=== PATIENT | male | born 1950 | race Caucasian/White ===

== ENCOUNTER 2024-12-20 05:10 | Emergency (ER) | payer MEDICARE, SELFPAY ==
[2024-12-20] VITALS (10 sets, daily range): BP systolic 100–123; BP diastolic 78–88; PULSE 85–96; RESP 14–22; TEMP 36.6; O2SAT 96–100
--- NOTE | ~2024-12-20 | CT_ITS ---
CT of the Abdomen and Pelvis: Indication: Abdominal pain Technique: 2.5 mm axial scans were obtained through the abdomen and pelvis following intravenous adm inistration of 100 cc of Omnipaque 350. Dose reduction technique was used on this scan by utilizing a utomated exposure control and iterative reconstruction technique. The dose-length product (DLP) was 7 07.40 mGy-cm. Findings: Scans through the lung bases are unremarkable. There is diffuse hepatic steatosis. The spleen, pancreas, gallbladder, adrenals and kidneys are withi n normal limits. No evidence of aortic aneurysm. No lymphadenopathy. No bowel obstruction or bowel wall thickening. There is no evidence to suggest acute appendicitis. Images through the pelvis were performed. Urinary bladder unremarkable. No pelvic mass seen. No ascit es. Bilateral L5 pars interarticularis defects are present. Impression: No acute abnormalities seen. Diffuse hepatic steatosis. Reviewed, dictated and finalized at [facility]. Impression: No acute abnormalities seen. Diffuse hepatic steatosis.
--- OUTSIDE RECORDS SUMMARY | 2024-12-20 05:12 | XMS_ITS | Clinical Summary ---
Author Organization [facility] Address [address] [place] [address] Care Team Providers Care Photographic Intelligence Officer Name Role Phone Unavailable Primary Care Provider Unavailabl e Source Comments [facility],non-owned Affiliates and Associated Physician Practices is amultiple site organization consisting of ambulatory clinics and hospital sitesin [place], [place], [place] and [place]. This disclosure is being madepursuant to the Care Everywhere program and may not contain all information available regarding this patient. Last updated 18.[facility] Immunizations Immunization Administration Dates Next Due HEP A VACCINE, ADULT 05/15/2018 HEP B VACCINE, ADULT 3 DOSE 05/15/2018 TD (ADULT), 5 LF TETANUS TOXOID, ADSORBED, PF Social History Tobacco Use Types Packs/Day Years Used Date Smoking Tobacco: Never Assessed Sex and Gender Information Value Date Recorded Sex Assigned at Not on file Legal Sex Male 3:55 PM CDT Gender Identity Not on file Sexual Orientation Not on file Plan of Treatment Health Maintenance Due Date Last Done Comments COLOGUARD (AGES 45-75) - COL ON CA SCREENING 1950 COLON MONITORING 1950 COLONOSCOPY - COLON CA SCREENING 1950 CT COLONOGRAPHY - COLON CA SCREENING 1950 Colorectal Cancer Screening 1950 FIT - COLON CA SCREENING 1950 FLEX SIG - COLON CA SCREENING 1950 LIPID TESTING 1950 HEPATITIS C SCREENING 02/28/1970 PNEUMOCOCCAL VACCINE 50+ (1 of 1 - PCV) 2002 ZOSTER VACCINE (1 of 2) 2002 HEPATITIS B VACCINE (2 of 3 - Risk 3-dose series) 06/12/2018 05/15/2018 HEPATITIS A VACCINE (2 of 2 - Risk 2-dose series) 11/13/2018 05/15/2018 COVID-19 VACCINE (1 - 2023-2 5 season) 2024 DEPRESSION SCREENING 08/14/2024 INFLUENZA VACCINE (Season Ended) 2025 Respiratory Syncytial Virus (RSV) Vaccine Pt: or over 60 yrs (1 - 1-dose 75+ series) 2027 DTAP/TDAP/TD VACCINES (2 - T d or Tdap) 05/15/2028 05/15/2018 HIB VACCINE Aged Out No longer eligi ble based on patient's age to complete this topic HPV VACCINE Aged Out No longer eligi ble based on patient's age to complete this topic MENINGOCOCCAL (Group B) VACC INE SHARED DECISION-MAKING Aged Out No longer eligibl e based on patient's age to complete this topic MENINGOCOCCAL GROUPS A/C/Y/W VACCINE Aged Out No longer eligible b ased on patient's age to complete this topic Insurance MEDICARE [employer] MEDICARE
--- OUTSIDE RECORDS SUMMARY | 2024-12-20 05:12 | XMS_ITS | Clinical Summary ---
Author Organization [facility] Address [address] [place] [id number] Care Team Providers Care Cra Name Role Phone Ho Peña MD Primary Care Provider [phone] Enio Parish MD Unavailable [phone] Allergies No known active allergies Medications lisinopril (PRINIVIL,ZESTR IL) 10 mg tablet TK 1 T PO QD 10 05/01/2018 Active aspirin 81 mg tablet Take 1 tablet (81 mg total) by mouth daily Active multivitamin capsule Take 1 capsule by mouth daily Active metFORMIN (GLUCOPHAGE) 500 mg tablet 850 mg 09/29/2020 Activ e rosuvastatin (CRESTOR) 10 mg tablet Take 1 tablet (10 mg total) by mouth daily Active Rybelsus 3 mg tablet 09/01/2022 Active Rybelsus 7 mg tablet Take 1 tablet (7 mg total) by mouth Every other day 11/14/2022 Active polyethylene glycol (GoLYTELY) 236-22.74-6.74 -5.86 gram solution Drink first half of prep at 6:00pm the night before procedure. Drink second half of prep 4 hours prior to leaving home for procedure. 4000 mL 11/01/2023 Active sodium, potassium & mag sulfates (SUPREP BOWEL KIT) 17.5-3.13-1.6 gram recon solnIndications :Bowel Evacuation Drink first half of prep at 6:00pm the night before procedure. Drink second half of prep 4 hours prior to leaving home for procedure. 354 mL 01/01/2024 Active Active Problems Problem Noted Date Diagnosed Date History of rectal cancer 11/29/2018 Malignant neoplasm screen 06/26/2018 Overview (07/24/2018): Added automatically from request for surgery [id number] Recent weight loss 05/10/2018 Muscle cramps 05/10/2018 Resolved Problems Problem Noted Date Diagnosed Date Resolved Date Rectal cancer (CMS/HCC) 05/10/2018 04/0 01/2023 Surgical History Surgery Date Site/Laterality Comments COLONOSCOPY 03/14/2018 REPLACEMENT UNICONDYLAR JOINT KNEE 08/14/2008 - 08/13/20 09 UPPER GASTROINTESTINAL ENDOSCOPY Medical History Medical History Date Comments Hypertension Diabetes mellitus (HCC) Family History Medical History Relation Name Comments Hypertension Father Hypertension Mother Colon cancer Neg Hx Relation Name Status Comments Father Mother Social History Tobacco Use Types Packs/Day Years Used Date Smoking Tobacco: Never Smokeless Tobacco: Never Tobacco Cessation:Counseling Given: Not Answered Alcohol Use Standard Drinks/Week Comments No 0 (1 standard drink = 0.6 oz pur e alcohol) AUDIT-C Answer Date Recorded Q1: How often do you have a drink containing alc ohol? Never 05/30/2024 Average Number of Drinks Not on file 024 Frequency of Binge Drinking Not on file 05/14 Personal Safety Answer Date Recorded Have you ever been in or are you currently in a harmful physical or emotional relationship or is someone making you feel afraid or unsafe? Denies 05/30/2024 Sex and Gender Information Value Date Recorded Sex Assigned at Not on file Legal Sex Male 11:28 AM CDT Gender Identity Not on file Sexual Orientation Not on file Obstetrics History Last Filed Vital Signs Vital Sign Reading Time Taken Comments Blood Pressure 113/84 05/30/2024 10:50 AM CDT Pulse 69 05/30/2024 10:50 AM CDT Temperature 36.2 C (97.2 F) 05/30/2024 10:27 AM CDT Respiratory Rate 17 05/30/2024 10:50 AM CDT Oxygen Saturation 99% 05/30/2024 10:50 AM CDT Inhaled Oxygen Concentration - - Weight 90.3 kg (199 lb) 11/01/2023 1:12 PM CDT Height 172.7 cm (5' 8 ) 11/01/2023 1:12 PM CDT Body Mass Index 30.26 11/01/2023 1:12 PM CDT Plan of Treatment Health Maintenance Due Date Last Done Comments Depression Screening 1950 Hepatitis C Screening 1950 Pneumococcal vaccine 65+ (1 of 1 - PCV) 2002 Zoster Vaccine (1 of 2) 2002 Well Visit 65+ 2017 DTaP/Tdap/Td Vaccine (1 - Tdap) 05/16/2018 8 Influenza Vaccine (#1) 2024 05/20/2018 Fall Risk Assessment 05/30/2025 05/30/2024 Colon Cancer Screening-Colonoscopy 05/30/2034 05/30/2024, 12/18/2020, 06/06/2019 Hepatitis B Screening Completed 05/15/2018 Colon Cancer Screening-CT Colonography Discontinued 05/30/2024, 12/18/2020, 06/06/2019, Additional history exists Colon Cancer Screening-DNA Stool Discontinued 05/30/2024, 12/18/2020, 06/06/2019, Additional history exists Colon Cancer Screening-FIT Discontinued 05/30, 12/18/2020, 06/06/2019, Additional history exists Colon Cancer Screening-Sigmoidoscopy Discontinued 05/30/2024, 12/18/2020, 06/06/2019, Additional history exists Procedures Procedure Name Priority Date/Time Associated Diagnosis Comments COLONOSCOPY 05/30/2024 10:01 AM CDT from Last 3 Months or Most Recently Relevant to Health Maintenance Results * Colonoscopy (05/30/2024 10:01 AM CDT) Anatomical Region Laterality Modality Other Narrative Procedure Note Thierno Ordaz MD - 05/30/2024 10:01 AM CDT [facility] Patient Name: Jairo Paz Procedure Date: 05/30/2024 10:01AM Date of : 1950 Admit Type: Outpatient Age: 74 Gender: Male Attending MD: Thierno Ordaz M.D. Room: [facility] ENDOSCOPY ROOM 02 Note Status: Finalized Procedure: Colonoscopy Indications: Last colonoscopy: 2020, Personal history ofmalignant rectal neoplasm Referring MD: Ho Peña M.D. Providers: Thierno Ordaz M.D. Medicines: Propofol per Anesthesia Complications: No immediate complications. Estimated blood loss:None. Estimated Blood Loss: Estimated blood loss: none. Procedure: Pre-Anesthesia Assessment: - Immediately prior to administration ofmedications, the patient was re-assessed for adequacy to receive sedatives. - Sedation was administered by an anesthesia professional. General anesthesia was attained. - The heart rate, respiratory rate, oxygen saturations, blood pressure, adequacy of pulmonary ventilation, and response to care were monitored throughout the procedure. - The physical status of the patient wasre-assessed after the procedure. The benefits, risks and alternatives of theprocedure and sedation were discussed and informed consentwas obtained. All questions were answered. Please referto the signed informed consent document in the medical record. The scope was passed under direct vision.The [id number] Endoscsope was introduced through the anus and advanced to the the cecum, identifiedby appendiceal orifice and ileocecal valve. The colonoscopy was performed with ease. The patient tolerated the procedure well. The quality of thebowel preparation was excellent. The quality of the bowel preparation was evaluated using the BBPS (BostonBowel Preparation Scale) with scores of: Right Colon = 3, Transverse Colon = 3 and Left Colon = 3 (entiremucosa seen well with no residual staining, smallfragments of stool or opaque liquid). The total BBPS score equals 9. The bowel preparation used was SUPREP via split dose instruction. Findings: The entire examined colon appeared normal. Impression: - The entire examined colon is normal. - No specimens collected. Recommendation: - Repeat colonoscopy in 5 years for surveillance. Attending Participation: I personally performed the entire procedure. Electronically signed by Dr.Matthew Orlin M.D. Thierno Ordaz M.D. 05/30/2024 10:25:34 AM . Number of Addenda: 0 Note Initiated On: 05/30/2024 10:01 AM Recognized by the [employer] for promoting quality in endoscopy Thierno Ordaz MD ENDOSCOPY PROCEDURES Final R esult from Last 3 Months or Most Recently Relevant to Health Maintenance Insurance [facility] MEDICARE MEDICARE [id number] UHC MEDICARE ADVANTAGE [facility] MEDICARE [facility] MEDICARE Advance Directives For more information, please contact: [phone] * Full Code (Latest Code Status on File) Date Activated Date Inactivated Comments 05/30/2024 8:48 AM 05/30/2024 3:06 PM * Full Code Date Activated Date Inactivated Comments 12/18/2020 9:31 AM 12/18/2020 3:17 PM * Full Code Date Activated Date Inactivated Comments 06/06/2019 12:41 PM 06/06/2019 5:47 PM Care Teams Cra Relationship Specialty Start Date End Date Ho Peña MD PCP - General Family Medicine 05/07/18 Enio Parish MD Referring Physician Gastroenterology 05/10/18
--- OUTSIDE RECORDS SUMMARY | 2024-12-20 05:12 | XMS_ITS | Referral Summary ---
Author Organization [facility] Address [address] [place] [id number] Care Team Providers Care Teacher Of The Hearing Impaired Name Role Phone Ho Peña MD Primary Care Provider [phone] Enio Parish MD Unavailable [phone] Allergies No known active allergies Medications [...] (07/24/2018): Added automatically from request for surgery [id number] Recent weight loss 05/10/2018 Muscle cramps 05/10/2018 Resolved Problems Problem Noted Date Diagnosed Date Resolved Date Rectal cancer (CMS/HCC) 05/10/2018 04/0 01/2023 Social History Tobacco Use Types Packs/Day Years [...] on file Sexual Orientation Not on file Last Filed Vital Signs Vital Sign Reading [...] 11/01/2023 1:12 PM CDT Plan of Treatment Not on file Procedures Procedure Name Priority Date/Time Associated Diagnosis Comments COLONOSCOPY 05/30/2024 10:01 AM CDT from Last 3 Months or Most Recently Relevant to Health Maintenance Results * Colonoscopy (05/30/2024 10:01 AM CDT) Anatomical Region Laterality Modality Other Narrative Procedure Note Thierno Ordaz MD - 05/30/2024 10:01 AM CDT [facility] Patient Name: Jairo Paz Procedure Date: 05/30/2024 10:01AM Date of : 1950 Admit Type: Outpatient Age: 74 Gender: Male Attending MD: Thierno Ordaz M.D. Room: [facility] ENDOSCOPY ROOM 02 Note Status: Finalized Procedure: [...] The scope was passed under direct vision.The [id number] Endoscsope was introduced through the anus and [...] On: 05/30/2024 10:01 AM Recognized by the [employer] for promoting quality in endoscopy Thierno Ordaz MD ENDOSCOPY PROCEDURES Final R esult from Last 3 Months or Most Recently Relevant to Health Maintenance Insurance [employer] MEDICARE MEDICARE [facility] MEDICARE ADVANTAGE [facility] MEDICARE Advance Directives For more information, please contact: [phone] * Full Code (Latest Code Status on File) Date Activated Date Inactivated Comments 05/30/2024 8:48 AM 05/30/2024 3:06 PM * Full Code Date Activated Date Inactivated Comments 12/18/2020 9:31 AM 12/18/2020 3:17 PM * Full Code Date Activated Date Inactivated Comments 06/06/2019 12:41 PM 06/06/2019 5:47 PM Care Teams Teacher Of The Hearing Impaired Relationship Specialty Start Date End Date Ho Peña MD PCP - General Family Medicine 05/07/18 Enio Parish MD Referring Physician Gastroenterology 05/10/18
--- OUTSIDE RECORDS SUMMARY | 2024-12-20 05:12 | XMS_ITS ---
Author Organization [facility] Address [address] [place] [phone] Care Team Providers Care Manager Of Development Name Role Phone Ho Peña MD Primary Care Provider [phone] Enio Parish MD Unavailable [phone] Active Problems Problem Noted Date Diagnosed Date History of rectal cancer 11/29/2018 Malignant neoplasm screen 06/26/2018 Overview (07/24/2018): Added automatically from request for surgery [id number] Recent weight loss 05/10/2018 Muscle cramps 05/10/2018 Current Treatment and Therapy Plans No current plan information found. Past Treatment and Therapy Plans No past plan information found. Lifetime Dose Tracking * Chemical Lifetime Dose Automatic Entry Manual Entr y DLP 5,484 mGycm 5,484 mGycm 0 mGycm Resolved Problems Problem Noted Date Diagnosed Date Resolved Date Rectal cancer (CMS/HCC) 05/10/2018 04/0 01/2023
--- OUTSIDE RECORDS SUMMARY | 2024-12-20 05:12 | XMS_ITS | Continuity of Care Document ---
Author Organization [facility] Address [address] [place] [address] [place] [address] Phone Care Team Providers Care I&C Technician Name Role Phone Ho Peña MD Unavailable Unavailable Allergies, Adverse Reactions, Alerts Substance Reaction Status Criticality No Known Allergies Active No Inform ation Medications Medication Instructions Dosage Effective Dates (start - stop) Status Comments TapDog Jayy 3 Plus Sensor device apply to upper arm and change every 14 days - Active e11.9 metformin 850 mg tablet take 1 tablet by oral route 2 times every day with morning and evening meals 850 MG - Active Rybelsus 7 mg tablet take 1 tablet by or al route every other day in the morning 30 min before any food, drink or medication with no more than 4 oz plain water - Active rosuvastatin 10 mg tablet take 1 tablet by oral route every day 10 MG - Active lisinopril 20 mg tablet take 1 tablet by oral route every day 20 MG - Active Procedures Procedure Date OFFICE/OUTPATIENT VISIT, EST OFFICE/OUTPATIENT VISIT, EST PREV VISIT, EST, 65 & OVER OFFICE/OUTPATIENT VISIT, EST OFFICE/OUTPATIENT VISIT, EST OFFICE/OUTPATIENT VISIT, EST OFFICE/OUTPATIENT VISIT, EST PREV VISIT, EST, 65 & OVER OFFICE/OUTPATIENT VISIT, EST OFFICE/OUTPATIENT VISIT, EST PREV VISIT, EST, 65 & OVER OFFICE/OUTPATIENT VISIT, EST OFFICE/OUTPATIENT VISIT, EST OFFICE/OUTPATIENT VISIT, EST PREV VISIT, EST, 65 & OVER OFFICE/OUTPATIENT VISIT, EST OFFICE/OUTPATIENT VISIT, EST OFFICE/OUTPATIENT VISIT, EST PPPS, initial visit OFFICE/OUTPATIENT VISIT, EST OFFICE/OUTPATIENT VISIT, EST OFFICE/OUTPATIENT VISIT, EST OFFICE/OUTPATIENT VISIT, EST Initial preventive exam OFFICE/OUTPATIENT VISIT, EST OFFICE/OUTPATIENT VISIT, EST OFFICE/OUTPATIENT VISIT, NEW Advance Directives Directive Yes / No Effective Date File Name No Information Encounters Encounter Description Practice Location Reason(s) For Visit Diagnoses Date Provider Providers Copied on Encounter [facility], [address] [place], [place], [address], tel:[phone] [facility] GI (chief complaint) No Information 5 Casey Teague. [address], [address] [place], [address] , [place]. tel:[phone] OFFICE/OUTPA TIENT VISIT, [facility], [address] [place], [address], [place] tel:[phone] [facility] DM (chief complaint) Type 2 diabetes mellitus without complications 5 Casey Teague. [address], [address], [place], [place], [address] , [place]. tel:[phone] OFFICE/OUTPA TIENT VISIT, [facility], [address] [place], [place], [address], tel:[phone] [facility] DM (chief complaint) HLP (chief complaint) HTN (chief complaint) Type 2 diabetes mellitus without complicationsMixed hyperlipidemiaEssen tial (primary) hypertensionMaligna nt neoplasm of colon, unspecified 4 Casey Teague. [address], [place], [place], [address] , [place]. tel:[phone] PREV VISIT, EST, 65 & OVER [facility], [address] [place], [place], [address], [place] tel:[phone] [facility] physical (chief complaint) Encounter for general adult medical exam w abnormal findingsMixed hyperlipidemiaType 2 diabetes mellitus without complicationsEssent ial (primary) hypertensionAcute bronchitis Feb- 4 Casey Teague. [address], [place], [place], [address] , [place]. tel:[phone] OFFICE/OUTPA TIENT VISIT, EST [facility], [address] [place], [address], [place] tel:[phone] [facility] back pain1 (chief complaint) OAB (chief complaint) Overactive bladderNontraumatic hematoma of soft tissueCoccygodynia 3 Casey Teague. [address], [place], [place], [address] , [place]. [phone] OFFICE/OUTPA TIENT VISIT, EST [facility], [address] [place], [address], [place] tel:[phone] [facility] urinary frequency1 (chief complaint) DM (chief complaint) HLP (chief complaint) HTN (chief complaint) Urinary frequencyType 2 diabetes mellitus without complicationsEssent ial (primary) hypertensionMixed hyperlipidemia Apr- 3 Casey Teague. [address], [place], [place], [address] , [place]. tel:[phone] OFFICE/OUTPA TIENT VISIT, EST [facility], [address] [place], [address], [place] tel:[phone] [facility] urinary frequency1 (chief complaint) Urinary frequencyType 2 diabetes mellitus without complications Apr- 3 Casey Teague. [address], [place], [place], [address] , [place]. [phone] PREV VISIT, EST, 65 & OVER [facility], [address], [place], [place], [address], [place] tel:[phone] [facility] Medicine Physical (chief complaint) Encounter for general adult medical exam w abnormal findingsType 2 diabetes mellitus without complicationsMixed hyperlipidemiaEssen tial (primary) hypertensionAbnorma l weight loss 3 Casey Ho. [address], [address], [place], [place], [address] , [place]. tel:[phone] OFFICE/OUTPA TIENT VISIT, [facility], [address], [place], [place], [address], [place] tel:[phone] [facility] Medicine DM (chief complaint) cough1 (chief complaint) Type 2 diabetes mellitus without complicationsAcute bronchitis 3 Casey Teague. [address], [address], [place], [place], [address] , [place]. [phone] PREV VISIT, EST, 65 & OVER [facility], [address], [place], [place], [address], [place] tel:[phone] [facility] Medicine physical (chief complaint) Encounter for general adult medical exam w abnormal findingsMixed hyperlipidemiaType 2 diabetes mellitus without complicationsLiver diseaseRenal disease 2 Casey Ho. [address], [address], [place], [place], [address] , [place]. [phone] OFFICE/OUTPA TIENT VISIT, [facility], [address], [place], [place], [address], [place] tel:[phone] [facility] Medicine cough1 (chief complaint) Acute bronchitis 2 Casey Ho. [address], [place], [place], [address] , [place]. tel:[phone] OFFICE/OUTPA TIENT VISIT, [facility], [address], [place], [place], [address], [place] tel:[phone] [facility] Medicine HLP (chief complaint) HTN (chief complaint) DM (chief complaint) HyperlipidemiaEssen tial (primary) hypertensionType 2 diabetes mellitus without complicationsMalign ant neoplasm of colon, unspecified Mar-3 2 Casey Giordano [address], [address], [place], [place], [address] , [place]. tel:[phone] PREV VISIT, EST, 65 & OVER [facility], [address], [place], [place], [address], [place] tel:[phone] [facility] physical (chief complaint) Encounter for general adult medical exam w abnormal findingsType 2 diabetes mellitus without complicationsRenal diseaseEssential (primary) hypertensionHyperli pidemiaNevus, non-neoplastic Mar- 1 Casey Giordano [address], [address], [place], [place], [address] , [place]. tel:[phone] OFFICE/OUTPA TIENT VISIT, [facility], [address], [place], [place], [address], [place] tel:[phone] [facility] HLP (chief complaint) DM (chief complaint) HTN (chief complaint) colon CA (chief complaint) HyperlipidemiaType 2 diabetes mellitus without complicationsEssent ial (primary) hypertensionMaligna nt neoplasm of colon, unspecified Nov-2 1 Casey Giordano [address], [address], [place], [place], [address] , [place]. tel:[phone] Referring Provider: [address], [place], [place], [address]. tel:[phone] OFFICE/OUTPA TIENT VISIT, [facility], [address], [place], [place], [address], [place] tel:[phone] [facility] HLP (chief complaint) DM (chief complaint) renal (chief complaint) colon CA (chief complaint) Type 2 diabetes mellitus without complicationsRenal diseaseEssential (primary) hypertensionHyperli pidemiaMalignant neoplasm of colon, unspecified Mar-0 0 Casey Giordano [address], [address], [place], [place], [address] , [place]. tel: [phone] Referring Provider: Michael Lundberg [address], [place], [place], [address]. tel:[phone] OFFICE/OUTPA TIENT VISIT, [facility], [address], [place], [place], [address], [place] tel:[phone] [facility] Physical (chief complaint) Encounter for general adult medical exam w abnormal findingsType 2 diabetes mellitus without complicationsMalign ant neoplasm of colon, unspecified 9 Casey Teague. [address], [place], [place], [address] , [place]. [phone] Referring Provider: Michael Lundberg [address], [place], [place], [address]. tel:[phone] OFFICE/OUTPA TIENT VISIT, [facility], [address], [place], [place], [address], [place] tel:[phone] [facility] HTN (chief complaint) DM (chief complaint) LFT (chief complaint) malaria1 (chief complaint) Liver diseaseType 2 diabetes mellitus without complicationsEssent ial (primary) hypertensionMaligna nt neoplasm of colon, unspecifiedRenal diseaseUnspecified malaria 8 Casey Teague. [address], [address], [place], [address] , [place]. [phone] Referring Provider: Michael Lundberg [address], [place], [place], [address]. tel:[phone] OFFICE/OUTPA TIENT VISIT, [facility], [address], [place], [place], [address], [place] tel:[phone] [facility] DM (chief complaint) renal1 (chief complaint) HLP (chief complaint) liver disease (chief complaint) LFT1 (chief complaint) HyperlipidemiaType 2 diabetes mellitus without complicationsRenal diseaseLiver diseaseMalignant neoplasm of colon, unspecified 8 Casey Teague. [address], [place], [place], [address] , [place]. [phone] Referring Provider: Michael Lundberg [address], [place], [place], [address]. tel:[phone] OFFICE/OUTPA TIENT VISIT, [facility], [address], [place], [place], [address], [place] [phone] [facility] DM (chief complaint) LFT (chief complaint) HLP (chief complaint) Type 2 diabetes mellitus without complicationsLiver diseaseBody mass index (BMI) 30.0-30.9, adultHyperlipidemia 8 Casey Teague. [address], [place], [place], [address] , [place]. tel:[phone] Referring Provider: Michael Lundberg [address], [place], [place], [address]. tel:[phone] OFFICE/OUTPA TIENT VISIT, [facility], [facility] [address], [place], [place], [address], [place] tel:[phone] [facility] DM1 (chief complaint) HTN (chief complaint) colon CA (chief complaint) Type 2 diabetes mellitus without complicationsEssent ial (primary) hypertensionMaligna nt neoplasm of colon, unspecifiedEncounte r for general adult medical exam w abnormal findings 8 Casey Teague. [address], [place], [place], [address] , [place]. tel:[phone] Referring Provider: Michael Lundberg [address], [place], [place], [address]. tel:[phone] OFFICE/OUTPA TIENT VISIT, [facility], [address], [place], [place], [address], [place] tel:[phone] [facility] DM (chief complaint) renal (chief complaint) LFT (chief complaint) HLP (chief complaint) Type 2 diabetes mellitus without complicationsLiver diseaseHyperlipidem iaRenal disease 8 Casey Giordano [address], [place], [place], [address] , [place]. tel:[phone] Referring Provider: Michael Lundberg [address], [place], [place], [address]. tel:[phone] OFFICE/OUTPA TIENT VISIT, [facility], [address], [place], [place], [address], tel:[phone] [facility] weight loss1 (chief complaint) HTN (chief complaint) Essential (primary) hypertensionPolyuri aAbnormal weight loss 8 Casey Teague. [address], [place], [place], [address] , [place]. tel:[phone] Referring Provider: Ho Peña, Michael Metz [facility] [address], [place], [place], [address]. tel:[phone] Family History Family Member Type Diagnosis Age At Onset Sister Problem (finding) Alive and well Father Problem (finding) Mother Problem (finding) Alive and well Father Problem (finding) of old age Payers Payer name Insurance type Covered libertarian ID Nayeli deng(s) [employer] Medicare CI [id number] Social History Type Description Quantity Date Captured Comments Alcohol Use Details Unknown Caffeine Use Details Unknown Tobacco Use Status No Information Smoking Status No Information Sex Male Chief Complaint And Reason For Visit From encounter dated '12/17/2024 18:05'. GI (chief complaint). Description: Pt c/o acute onets of nausea. vomiting, stomach cramp, non bloody diarrhea since 2 days ago, no fever. 97.4 Plan Of Treatment Date Type Action Status Goal Special diet education compl eted Goal Prescribed dietary intake co mpleted Goal Special diet education compl eted Goal Special diet education compl eted Referral Ordered: Yony Padilla -[facility] Phys[facility] : Surgery (related to Nevus, non-neoplastic) ordered Referral Referred To: Yony Padilla [address] [place] [address], [phone] Ordered: Referrals: [facility]opathic [facility] Osteopathic Physicians : Surgery. Yony Padilla. Evaluate and treat ordered Referral Ordered: Rayshawn Cisneros M.D. (related to Type 2 diabetes mellitus without complications) ordered Referral Referred To: Rayshawn Cisneros M.D. [address] [place] [phone] Ordered: Referrals: Rayshawn Cisneros M.D.. Evaluate and treat ordered Referral Ordered: Gastroenterology (related to Abnormal weight loss) ordered Referral Ordered: Referrals: Gastroenterology. Evaluate and treat ordered History Of Present Illness Encounter Date Complaint History Of Prese nt Illness GI Pt c/o acute one ts of nausea. vomiting, stomach cramp, non bloody diarrhea since 2 days ago, no fever. 97.4 DM Pt has DM. Pt ta kes metformin and rybelsus and his glucose is around 120s. Pt denies any polyuria, polydipsia .He needs test strip refilled. HTN Pt has HTN Pt ta kes lisinopril Pt denies any chest pain his bp is ok. HLP Pt has HLP Pt ta kes crestor and his lipid profile is ok. DM Pt has DM Pt donna es rybelsus and also metformin and his A1c is 7.1 and his glucose is 145. Pt denies any neuropathy symptoms Pt denies any polyuria polydipsia physical Pt needs annual physical. pt c/o mild sinus congestion with postnasal drainage and some dry cough for one week Pt denies any sob or fever Pt denies any chest pain or hemoptysis. Pt hs DM. Pt takes rybelsus and metformin and his glucose is around 120s. Pt has HTN and HLP Pt takes lisinopril and crestor .Pt denies any myalgia .his BP is stable. Pt has history of colon CA s/p surgical removal of the tumor and he denies any GI symptoms he has shania for colonoscopy soon OAB Pt has mild OAB. Pt has cut down coffee and his urinary symptoms greatly improved. He also took oxybutynin PRN during his long flight trip and his urinary symptoms are well controlled. He no longer has any urinary urgency and frequency. Pt is off oxybutynin. back pain1 Pt slipped and f ell on his tailbone area 2 weeks ago on a slope. Pt notices a large bruise around tailbone area and also spreading to upper buttock area initially. Pt did not go to ER or get any imaging study. Pt took some OTC medication and he no longer has any pain. Pt states that the bruising around buttock area almost completely resolved but he still notices some swelling around tailbone area. He no longer has any pain. He is able to ambulate without any difficulty. HLP Pt has HLP Pt ta katelynn crestor and his lipid profile is ok Pt denies any myalgia HTN Pt has HTN Pt ta kes lisinopril and bp stable DM Pt has DM. Pt ta kes metformin and rybelsus 7 mg every other day. His A1c and glucose are stable. Pt denies any neuropathy urinary frequency1 Pt has urinar y frequency and mild urgency for a while Pt denies any dysuria, pt denies any urinary frequency at night. He denies any slow stream or difficulty with urination. Pt drinks multiple cups of coffee daily urinary frequency1 Pt has chroni c urinary frequency Pt denies any dysuria. Pt denies any waking up at night for urination. Pt is going on road trip to [facility] for mission trip and he wants some medication to help him with urinate less since he has long flight trip. pt denies any urgency. Pt states that his glucose is around 150. pt denies any slow stream or difficulty with urination Pt denies any abd pain Physical Pt needs annual physical. Pt has DM. Pt takes metformin and rybelsus and his A1c and glucose improved. . Pt denies any neuropathy Pt denies any polyuria, polydipsia. Pt notices adequate appetite suppression with rybelsus and he lost some weight Pt also has HLP and HTN Pt takes crestor and lisinopril Pt doing ok Pt denies any active complaints DM Pt has DM Pt donna es metformin and his fasting glucose is around 150-200 in the morning Pt denies any polyuria, polydipsia. Pt denies any neuropathy. Pt takes metformin daily cough1 Pt c/o productiv e cough with green phlegm x one week Pt denies any sob, fever, chill, chest pain, sinus symptoms, sob etc .Pt denies any gi symptoms physical Pt needs annual physical. Pt has DM. Pt takes metformin and his glucose is around 140s. Pt denies any neuropathy Pt denies any polyuria, polydipsia. Pt has borderline high LFT Pt denies any abd pain or jaundice. Pt has borderline stable renal function Pt takes crestor for HLP and his lipid profile is ok Pt has borderline high TG. Pt overall feels well. Pt gained some weight. Pt denies any GI issue Pt overall feels well. cough1 Pt c/o acute ons et of cough with clear phlegm since yesterday. pt denies any fever or sob. Pt denies any chest pain. Pt feels achy all over. Pt denies any loss of taste and smell Pt was exposed to COVID 3 days ago. Pt had two at home COVID testing which were all negative, the last one was this morning .Pt denies any headache. Pt is fully vaccinated and boosted for COVID. Pt denies any sore throat, sinus symptoms, etc . HTN Pt has HTN Pt ta kes lisinopril. His bp is around 130/70. Pt denies any chest pain or headache DM Pt takes metform in .His glucose is around 110s Pt denies any polyuria, polydipsia HLP Pt has HLP. Pt t akes crestor .Pt denies any myalgia Pt has not done lab yet. physical Pt needs annual physical. Pt has DM. HLP and HTN. Pt has been taking metformin 850 BID and lisinopril and crestor and he has been compliant. His lab appeared much better result this time. His glucose is 135 and his A1c also improved to 6.5. Pt denies any neuropathy. Pt denies any polyuria, polydipsia. Pt has stable borderline low renal for several years Pt has normal UO. Pt overall feels well. Pt also c/o a chronic dark mole like lesion on right chin area for more than 10 years. Pt notices getting bigger recently Pt denies any pain or bleeding or itching, etc DM Pt has DM. His g lucose is 6.9 Pt denies any neuropathy. pt states that his glucose is around 120s .Pt denies any polyuria, polydipsia. Pt denies any claudication. Pt takes metformin only. HTN Pt has HTN Pt ta kes lisinopril and his BP is 145/98 recently at doctor office PT does not check his bp at home. Pt denies any chest pain or headache colon CA Pt has colon CA s/p removal of tumor. Pt just saw GI oncology and he did CT of chest and abdomen and MRI of pelvis and he has colonoscopy scheduled next month Pt denies any weight loss and he denies any lower GI issue HLP Pt has HLP. Pt h as not been taking crestor. His lipid is high colon CA Pt has colon CA. Pt had colonoscopy last year and he has some polyps Pt denies any lower Gi issue or bleeding Pt has not followed up with GI surgeon yet. HLP Pt has HLP .Pt i s trying to diet but not working so well DM Pt has DM Pt has not been taking any metformin for long time Pt notices lashay this BG is around 150s .Pt denies any neuropathy renal Pt has borderlin e stable renal disease Pt has normal UO Physical PT needs annual physical. pt stopped taking metformin on his own several months ago. His BG is around 110s. Pt denies any polyuria polydipsia. Pt takes lisinopril. His BP is ok. Pt has colon CA and he is seeing oncology and GI at [facility] due to ? recurrent tumor around rectum. Pt denies any weight loss or any change or bowel pattern or any GI bleeding Pt otherwise feels well. HTN Pt takes lisinop ril and his BP is stable. Pt denies any chest pain or headache DM PT is on metform in only and his glucose is around 110s. Pt denies any hypoglycemia episodes pt is off amaryl LFT Pt had mild high LFT. Pt denies any abd pain His CT is ok. He does not have hep C. Pt does not drink alcohol malaria1 Pt is leaving to [facility] in 3 days .Pt needs malaria prophylactic. DM Pt has been taki ng metformin only once per day and amaryl once per day and he notices that his BG is around 100 and he has multiple episodes of hypoglycemia. His glucose recently got down to 60s and pt had to eat some candy. Pt did feel sweaty when his Bg was very low. His lab showed normal BG and his A1c is normal now Pt denies any polyuria, polydipsia LFT1 his LFT is donna l now. Pt does not have hep c liver disease HLP Pt has history o f mild HLP pt is trying low fat and low carb diet renal1 Pt has borderlin e renal function Pt has normal UO. Pt denies any flank pain HLP Pt has mild high TG. His lipid profile is ok. pt is trying low fat and low carb diet now LFT Pt has mild high LFT. Pt does not have hep C. pt denies any abdominal pain DM Pt has DM Pt donna es metformin and amaryl and his BG is around 100. Pt denies any hypoglycemia. His BG is around 120s now. His A1c is better HTN pt has HTN Pt ta kes lisinorpil and his BP is stalbe. Pt denies any dry cough or lip or throat swelling DM1 Pt has DM pt donna es metformin and amaryl. Pt states that he cut off all carbs. Pt stats that his BG is around 80-100 now. Pt denies any hypoglycmeia. Pt denies any polyuria, polydpisia. Pt denie sany numbness. colon CA Pt recenlty had EGD and colonoscopy Pt was found to have h pylori and he has malignant colon CA, Pt was treated for the Hpylori and he l go back to GI for 2nd colonoscopy and full lesion removal. Pt denies any blood in stool HLP Pt has HLP ,Pt h as elevated TG and TC. Pt is not on any diet LFT Pt has mildly el evated LFT. Pt does not have hepatitis C. Pt denies any abd pain or jaundice renal Pt has borderlin e renal function. Pt has normal UO DM Pt has newly damian gnosed poorly controlled DM. His BG is around 400. His A1c is over 14. Pt has polyuria, polydipsia. Pt denie sany chest pain or vision change weight loss1 Pt c/o polyuria, polydipsia, thirsty, 20 pounds weight loss, dry mouth, loss of appetite since 4 weeks ago. Pt has not seen physician for long time Pt denies any numbness, tingling. Pt denies any abdominal pain. Pt states that his finger tip feels rough and sandpaper like. Pt denies any chest pain or sob. Pt does not take any medication. Pt denies any dysuria, frequency, urgency. Pt denies any constipation, diarrhea. Pt has intermittent bright red blood per rectum every 2-3 days for seveal years. Pt denies any change in bowel pattern. Pt has been drink a lot of water due to feeling thirsty HTN Pt has mild HTn today. pt denies any chest pain or headache Instructions Date Instruction Additional Infor bowen Special diet education Related t o Body mass index (BMI) 31.0-31.9, adult Prescribed dietary intake Relate d to Body mass index (BMI) 31.0-31.9, adult Increase physical activity Relat ed to Liver disease Special diet education Related t o Body mass index (BMI) 31.0-31.9, adult Increase activity. Related to Hy perlipidemia Follow a low sodium diet. Relate d to Hyperlipidemia Increase physical activity. Rela burt to Type 2 diabetes mellitus without complications Check blood sugar twice a day. R elated to Type 2 diabetes mellitus without complications Special diet education Related t o Body mass index (BMI) 30.0-30.9, adult Weight management Related to Vivian whitfield for general adult medical exam w abnormal findings Increase physical activity Relat ed to Encounter for general adult medical exam w abnormal findings Prescribed Diet Educ ation/Lifestyle Education Regarding Diet Related to Dietary Surveillance and Counseling Prescribed Activity and Exercise Education Related to Dietary Surveillance and Counseling Increase physical activity. Rela burt to Type 2 diabetes mellitus without complications Check blood sugar twice a day. R elated to Type 2 diabetes mellitus without complications Prescribed Diet Educ ation/Lifestyle Education Regarding Diet Related to Dietary Surveillance and Counseling Prescribed Activity and Exercise Education Related to Dietary Surveillance and Counseling Prescribed Activity and Exercise Education Related to Dietary Surveillance and Counseling Prescribed Diet Educ ation/Lifestyle Education Regarding Diet Related to Dietary Surveillance and Counseling Increase activity. Related to Es sential (primary) hypertension Follow a low sodium diet. Relate d to Essential (primary) hypertension Assessments Type Assessment Date No Information
[2024-12-20 05:29] LABS: Glucose Point of Care 118 mg/dl (65-105)
[2024-12-20 05:36] LABS: Basophils Percent Auto 0.4 % (0.2-1.2); Eosinophils Absolute Auto 0.5 K/mm3 (0-0.3); Eosinophils Percent Auto 4.3 % (0-4.4); Hematocrit 46.9 % (42.0-52.0); Hemoglobin 15.6 g/dL (14.0-18.0); Immature Granulocyte Absolute 0.04 K/mm3 (0.00-0.031); Immature Granulocyte Percent A 0.4 % (0-0.5); Lymphocytes Absolute Auto 2.17 K/mm3 (0.9-3.2); Lymphocytes Percent Auto 20.4 % (18.3-44.2); Mean Corpuscular HGB Conc 33.3 g/dl (32-36); Mean Corpuscular Hemoglobin 30.1 pg (26-34); Mean Corpuscular Volume 90.5 fl (80-100); Mean Platelet Volume 10.7 fl (7.4-10.4); Monocytes Absolute Auto 0.7 K/mm3 (0.1-0.6); Monocytes Percent Auto 6.9 % (2.6-8.5); Neutrophils Absolute Auto 7.2 K/mm3 (1.3-6.7); Neutrophils Percent Auto 67.6 % (45.5-73.1); Platelet Count Result 197 k/mm3 (150-375); Red Blood Count 5.18 M/mm3 (4.6-6.20); White Blood Count 10.7 K/mm3 (4.5-10.0)
[2024-12-20] MEDS: ONDANSETRON INJ 4 MG/2 ML VIAL IV PUSH (05:39)
[2024-12-20] MEDS: SODIUM CHLORIDE 0.9% IV 1,000 ML 999 ML IV CONT (05:39)
--- OUTSIDE RECORDS SUMMARY | 2024-12-20 05:40 | XMS_ITS | Continuity of Care Document ---
Author Organization [facility] Address [address] [place] [address] [place] [address] Phone Care Team Providers Care Social Media Assistant Name Role Phone Ho Peña MD Unavailable Unavailable Allergies, Adverse Reactions, Alerts Substance Reaction Status Criticality No Known Allergies Active No Inform ation Medications Medication Instructions Dosage Effective Dates (start - stop) Status Comments Rybelsus 7 mg tablet take 1 tablet by or al route every other day in the morning 30 min before any food, drink or medication with no more than 4 oz plain water - Active metformin 850 mg tablet take 1 tablet by oral route 2 times every day with morning and evening meals 850 MG - Active Order Mapper Jayy 3 Plus Sensor device apply to upper arm and change every 14 days - Active e11.9 lisinopril 20 mg tablet take 1 tablet by oral route every day 20 MG - Active rosuvastatin 10 mg tablet take 1 tablet by oral route every day 10 MG - Active Procedures Procedure Date OFFICE/OUTPATIENT [...] Diagnoses Date Provider Providers Copied on Encounter [facility], [address] [place], [address], tel:[phone] [facility] GI (chief complaint) No Information 5 Casey Teague. [address], [address] [place], [address] , [place]. tel:[phone] OFFICE/OUTPA TIENT VISIT, [facility], [address], [place], [address], [place] tel:[phone] [facility] DM (chief complaint) Type 2 diabetes mellitus without complications 5 Casey Teague. [address], [place], [place], [address] , [place]. tel:[phone] OFFICE/OUTPA TIENT VISIT, [facility], [address], [place], [address], tel:[phone] [facility] DM (chief complaint) HLP (chief complaint) HTN (chief complaint) Type 2 diabetes mellitus without complicationsMixed hyperlipidemiaEssen tial (primary) hypertensionMaligna nt neoplasm of colon, unspecified 4 Casey Teague. [address], [place], [place], [address] , [place]. tel:[phone] PREV VISIT, EST, 65 & OVER [facility], [address] [place], [place], [address], [place] tel:[phone] [facility] physical (chief complaint) Encounter for general adult medical exam w abnormal findingsMixed hyperlipidemiaType 2 diabetes mellitus without complicationsEssent ial (primary) hypertensionAcute bronchitis Feb- 4 Casey Teague. [address], [place], [place], [address] , [place]. tel:[phone] OFFICE/OUTPA TIENT VISIT, EST [facility], [address] [place], [address], [place] tel:[phone] [facility] back pain1 (chief complaint) OAB (chief complaint) Overactive bladderNontraumatic hematoma of soft tissueCoccygodynia 3 Casey Teague. [address], [place], [place], [address] , [place]. [phone] OFFICE/OUTPA TIENT VISIT, EST [facility], [address] [place], [address], [place] tel:[phone] [facility] urinary frequency1 (chief complaint) DM (chief complaint) HLP (chief complaint) HTN (chief complaint) Urinary frequencyType 2 diabetes mellitus without complicationsEssent ial (primary) hypertensionMixed hyperlipidemia Apr- 3 Casey Teague. [address], [place], [place], [address] , [place]. tel:[phone] OFFICE/OUTPA TIENT VISIT, EST [facility], [address] [place], [address], [place] tel:[phone] [facility] urinary frequency1 (chief complaint) Urinary frequencyType 2 diabetes mellitus without complications Apr- 3 Casey Teague. [address], [place], [place], [address] , [place]. [phone] PREV VISIT, EST, 65 & OVER [facility], [address], [place], [place], [address], [place] tel:[phone] [facility] Physical (chief complaint) Encounter for general adult medical exam w abnormal findingsType 2 diabetes mellitus without complicationsMixed hyperlipidemiaEssen tial (primary) hypertensionAbnorma l weight loss 3 Casey Ho. [address], [place], [place], [address] , [place]. tel:[phone] OFFICE/OUTPA TIENT VISIT, [facility], [address], [place], [address], [place] tel:[phone] [facility] DM (chief complaint) cough1 (chief complaint) Type 2 diabetes mellitus without complicationsAcute bronchitis 3 Casey Teague. [address], [place], [address] , [place]. [phone] PREV VISIT, EST, 65 & OVER [facility], [address], [place], [place], [address], [place] tel:[phone] [facility] Medicine physical (chief complaint) Encounter for general adult medical exam w abnormal findingsMixed hyperlipidemiaType 2 diabetes mellitus without complicationsLiver diseaseRenal disease 2 Casey Ho. [address], [place], [place], [address] , [place]. [phone] OFFICE/OUTPA TIENT VISIT, [facility], [address], [place], [place], [address], [place] tel:[phone] [facility] Medicine cough1 (chief complaint) Acute bronchitis 2 Casey Ho. [address], [place], [place], [address] , [place]. tel:[phone] OFFICE/OUTPA TIENT VISIT, [facility], [address], [place], [place], [address], [place] tel:[phone] [facility] HLP (chief complaint) HTN (chief complaint) DM (chief complaint) HyperlipidemiaEssen tial (primary) hypertensionType 2 diabetes mellitus without complicationsMalign ant neoplasm of colon, unspecified Mar-3 2 Casey Giordano [address], [place], [place], [address] , [place]. tel:[phone] PREV VISIT, EST, 65 & OVER [facility], [address], [place], [address], [place] tel:[phone] [facility] physical (chief complaint) Encounter for general adult medical exam w abnormal findingsType 2 diabetes mellitus without complicationsRenal diseaseEssential (primary) hypertensionHyperli pidemiaNevus, non-neoplastic Mar- 1 Casey Giordano [address], [place], [place], [address] , [place]. tel:[phone] OFFICE/OUTPA TIENT VISIT, [facility], [address], [place], [place], [address], [place] tel:[phone] [facility] HLP (chief complaint) DM (chief complaint) HTN (chief complaint) colon CA (chief complaint) HyperlipidemiaType 2 diabetes mellitus without complicationsEssent ial (primary) hypertensionMaligna nt neoplasm of colon, unspecified Nov-2 1 Casey Giordano [address], [place], [place], [address] , [place]. [phone] Referring Provider: [address], [place], [place], [address]. tel:[phone] OFFICE/OUTPA TIENT VISIT, [facility], [address], [place], [place], [address], [place] tel:[phone] [facility] HLP (chief complaint) DM (chief complaint) renal (chief complaint) colon CA (chief complaint) Type 2 diabetes mellitus without complicationsRenal diseaseEssential (primary) hypertensionHyperli pidemiaMalignant neoplasm of colon, unspecified Mar-0 0 Casey Giordano [address], [place], [place], [address] , [place]. tel: [phone] Referring Provider: Michael [address], [place], [place], [address]. tel:[phone] OFFICE/OUTPA TIENT VISIT, [facility], [address], [place], [place], [address], [place] tel:[phone] [facility] Physical (chief complaint) Encounter for general adult medical exam w abnormal findingsType 2 diabetes mellitus without complicationsMalign ant neoplasm of colon, unspecified 9 Casey Teague. [address], [place], [address] , [place]. [phone] Referring Provider: Michael Lund[address], [place], [place], [address]. tel:[phone] OFFICE/OUTPA TIENT VISIT, [facility], [address], [place], [place], [address], [place] tel:[phone] [facility] HTN (chief complaint) DM (chief complaint) LFT (chief complaint) malaria1 (chief complaint) Liver diseaseType 2 diabetes mellitus without complicationsEssent ial (primary) hypertensionMaligna nt neoplasm of colon, unspecifiedRenal diseaseUnspecified malaria 8 Casey Teague. [address], [place], [address] , [place]. [phone] Referring Provider: Michael Lundberg [address], [place], [place], [address]. tel:[phone] OFFICE/OUTPA TIENT VISIT, [facility], [address], [place], [place], [address], [place] tel:[phone] [facility] DM (chief complaint) renal1 (chief complaint) HLP (chief complaint) liver disease (chief complaint) LFT1 (chief complaint) HyperlipidemiaType 2 diabetes mellitus without complicationsRenal diseaseLiver diseaseMalignant neoplasm of colon, unspecified 8 Casey Teague. [address], [place], [address] , [place]. [phone] Referring Provider: Michael Lundberg [address], [place], [place], [address]. tel:[phone] OFFICE/OUTPA TIENT VISIT, [facility], [address], [place], [address], [place] [phone] [facility] DM (chief complaint) LFT (chief complaint) HLP (chief complaint) Type 2 diabetes mellitus without complicationsLiver diseaseBody mass index (BMI) 30.0-30.9, adultHyperlipidemia 8 Casey Teague. [address], [place], [address] , [place]. tel:[phone] Referring Provider: Michael Lundberg [address], [place], [place], [address]. tel:[phone] OFFICE/OUTPA TIENT VISIT, [facility], [facility] [address], [place], [place], [address], [place] tel:[phone] [facility] DM1 (chief complaint) HTN (chief complaint) colon CA (chief complaint) Type 2 diabetes mellitus without complicationsEssent ial (primary) hypertensionMaligna nt neoplasm of colon, unspecifiedEncounte r for general adult medical exam w abnormal findings 8 Casey Teague. [address], [place], [place], [address] , [place]. tel:[phone] Referring Provider: Michael Lundberg [address], [place], [address]. tel:[phone] OFFICE/OUTPA TIENT VISIT, [facility], [address], [place], [address], [place] tel:[phone] [facility] DM (chief complaint) renal (chief complaint) LFT (chief complaint) HLP (chief complaint) Type 2 diabetes mellitus without complicationsLiver diseaseHyperlipidem iaRenal disease 8 Casey Giordano [address], [place], [address] , [place]. [phone] Referring Provider: Michael Lundberg [address], [place], [place], [address]. tel:[phone] OFFICE/OUTPA TIENT VISIT, [facility], [address], [place], [place], [address], tel:[phone] [facility] weight loss1 (chief complaint) HTN (chief complaint) Essential (primary) hypertensionPolyuri aAbnormal weight loss 8 Casey Teague. [address], [place], [place], [address] , [place]. tel:[phone] Referring Provider: Ho Peña, Michael Metz [facility] A, [place], [place], [address]. tel:[phone] Family History Family Member Type Diagnosis Age At Onset Sister Problem (finding) Alive and well Father Problem (finding) Mother Problem (finding) Alive and well Father Problem (finding) of old age Payers Payer name Insurance type Covered republican ID Nayeli deng(s) [employer] Medicare CI [id number] Social History Type Description Quantity Date Captured [...] Referred To: Yony Padilla [address] [place] [address], [id number] Ordered: Referrals: Allopathic & Osteopathic Physicians : Surgery. Yony Padilla. Evaluate and treat ordered Referral Ordered: Rayshawn Cisneros M.D. (related to Type 2 diabetes mellitus without complications) ordered Referral Referred To: Rayshawn Cisneros M.D. [address] [place] [phone] Ordered: Referrals: Rayshawn Cisneros M.D.. Evaluate and [...] polyuria, polydipsia .He needs test strip refilled. DM Pt has DM Pt donna es rybelsus and also metformin and his A1c is 7.1 and his glucose is 145. Pt denies any neuropathy symptoms Pt denies any polyuria polydipsia HLP Pt has HLP Pt ta kes crestor and his lipid profile is ok. HTN Pt has HTN Pt ta kes lisinopril Pt denies any chest pain his bp is ok. physical Pt needs annual physical. pt c/o [...] symptoms he has shania for colonoscopy soon back pain1 Pt slipped and f ell [...] is able to ambulate without any difficulty. OAB Pt has mild OAB. Pt has cut down coffee and his urinary symptoms greatly improved. He also took oxybutynin PRN during his long flight trip and his urinary symptoms are well controlled. He no longer has any urinary urgency and frequency. Pt is off oxybutynin. urinary frequency1 Pt has urinar y frequency and mild urgency for a while Pt denies any dysuria, pt denies any urinary frequency at night. He denies any slow stream or difficulty with urination. Pt drinks multiple cups of coffee daily DM Pt has DM. Pt ta kes metformin and rybelsus 7 mg every other day. His A1c and glucose are stable. Pt denies any neuropathy HLP Pt has HLP Pt ta kes crestor and his lipid profile is ok Pt denies any myalgia HTN Pt has HTN Pt ta kes lisinopril and bp stable urinary frequency1 Pt has chroni c urinary frequency Pt denies any dysuria. Pt denies any waking up at night for urination. Pt is going on road trip to [facility] for mission trip and he wants some [...] been taking crestor. His lipid is high HLP Pt has HLP .Pt i s trying to diet but not working so well DM Pt has DM Pt has not been taking any metformin for long time Pt notices lashay this BG is around 150s .Pt denies any neuropathy renal Pt has borderlin e stable renal disease Pt has normal UO colon CA Pt has colon CA. Pt had colonoscopy last year and he has some polyps Pt denies any lower Gi issue or bleeding Pt has not followed up with GI surgeon yet. Physical PT needs annual physical. pt stopped taking metformin on his own several months ago. His BG is around 110s. Pt denies any polyuria polydipsia. Pt takes lisinopril. His BP is ok. Pt has colon CA and he is seeing oncology and GI at [facility] due to ? recurrent tumor around rectum. [...] drink alcohol malaria1 Pt is leaving to [facility] in 3 days .Pt needs malaria prophylactic. renal1 Pt has borderlin e renal function Pt has normal UO. Pt denies any flank pain HLP Pt has history o f mild HLP pt is trying low fat and low carb diet liver disease LFT1 his LFT is donna l now. Pt does not have hep c DM Pt has been taki ng metformin [...] normal now Pt denies any polyuria, polydipsia DM Pt has DM Pt donna es metformin and amaryl and his BG is around 100. Pt denies any hypoglycemia. His BG is around 120s now. His A1c is better LFT Pt has mild high LFT. Pt does not have hep C. pt denies any abdominal pain HLP Pt has mild high TG. His lipid profile is ok. pt is trying low fat and low carb diet now HTN pt has HTN Pt ta kes [...] removal. Pt denies any blood in stool DM Pt has newly damian gnosed poorly controlled DM. His BG is around 400. His A1c is over 14. Pt has polyuria, polydipsia. Pt denie sany chest pain or vision change renal Pt has borderlin e renal function. Pt has normal UO LFT Pt has mildly el evated LFT. Pt does not have hepatitis C. Pt denies any abd pain or jaundice HLP Pt has HLP ,Pt h as elevated TG and TC. Pt is not on any diet weight loss1 Pt c/o polyuria, polydipsia, thirsty, [...] low sodium diet. Relate d to Hyperlipidemia Special diet education Related t o Body mass index (BMI) 30.0-30.9, adult Check blood sugar twice a day. R elated to Type 2 diabetes mellitus without complications Increase physical activity. Rela burt to Type 2 diabetes mellitus without complications Prescribed Activity and Exercise Education Related to Dietary Surveillance and Counseling Prescribed Diet Educ ation/Lifestyle Education Regarding Diet Related to Dietary Surveillance and Counseling Increase physical activity Relat ed to Encounter for general adult medical exam w abnormal findings Weight management Related to Enc ounter for general adult medical exam w abnormal findings Prescribed Activity and Exercise Education Related to Dietary Surveillance and Counseling Prescribed Diet Educ ation/Lifestyle Education Regarding Diet Related to Dietary Surveillance and Counseling Check blood sugar twice a day. R elated to Type 2 diabetes mellitus without complications Increase physical activity. Rela burt to Type 2 diabetes mellitus without complications Prescribed Activity and Exercise Education Related to Dietary Surveillance and Counseling Prescribed Diet Educ ation/Lifestyle Education Regarding Diet Related to Dietary Surveillance and Counseling Increase activity. Related to Es sential (primary) hypertension Follow a low sodium diet. Relate d to Essential (primary) hypertension Assessments Type Assessment Date No Information
--- OUTSIDE RECORDS SUMMARY | 2024-12-20 05:40 | XMS_ITS ---
Author Organization [facility] Address [address] [place] [address] Care Team Providers Care Director Surface Transportation Name Role Phone Ho Peña MD Primary Care Provider [phone] Enio Parish MD Unavailable [phone] Active Problems Problem Noted Date Diagnosed Date History of rectal cancer 11/29/2018 Malignant neoplasm screen 06/26/2018 Overview (07/24/2018): Added automatically from request for surgery [id number] Recent weight loss 05/10/2018 Muscle cramps 05/10/2018 [...]
--- OUTSIDE RECORDS SUMMARY | 2024-12-20 05:40 | XMS_ITS | Clinical Summary ---
Author Organization [facility] Address [address] [place] [address] Care Team Providers Care Floorworker Distributor Name Role Phone Unavailable Primary Care Provider Unavailabl e Source Comments [facility],non-owned Affiliates and Associated Physician Practices is amultiple site organization consisting of ambulatory clinics and hospital sitesin [place], [place], [place] and [place]. This disclosure is being madepursuant to the Care Everywhere program and may not contain all information available regarding this patient. Last updated 18.[facility] Immunizations Immunization Administration Dates Next Due HEP [...] age to complete this topic Insurance MEDICARE [employer] MEDICARE
--- OUTSIDE RECORDS SUMMARY | 2024-12-20 05:40 | XMS_ITS | Referral Summary ---
Author Organization [facility] Address [address] [place] [address] Care Team Providers Care Tuber Operator Name Role Phone Ho Peña MD Primary Care Provider [phone] Enio Parish MD Unavailable [phone] Allergies No known active allergies Medications [...] (07/24/2018): Added automatically from request for surgery [id number] Recent weight loss 05/10/2018 Muscle cramps 05/10/2018 [...] Ordaz MD - 05/30/2024 10:01 AM CDT [facility] Patient Name: Jairo Paz Procedure Date: 05/30/2024 10:01AM Date of : 1950 Admit Type: Outpatient Age: 74 Gender: Male Attending MD: Thierno Ordaz M.D. Room: [facility] ENDOSCOPY ROOM 02 Note Status: Finalized Procedure: [...] The scope was passed under direct vision.The [id number] Endoscsope was introduced through the anus and [...] On: 05/30/2024 10:01 AM Recognized by the [place] for promoting quality in endoscopy Thierno Ordaz MD ENDOSCOPY PROCEDURES Final R esult from Last 3 Months or Most Recently Relevant to Health Maintenance Insurance [employer] MEDICARE MEDICARE [facility] Address: [address] [address] [place] [address] adSage [facility] MEDICARE ADVANTAGE [facility] MEDICARE Advance Directives For more information, please contact: [phone] * Full Code (Latest Code Status on File) Date Activated Date Inactivated Comments 05/30/2024 8:48 AM 05/30/2024 3:06 PM * Full Code Date Activated Date Inactivated Comments 12/18/2020 9:31 AM 12/18/2020 3:17 PM * Full Code Date Activated Date Inactivated Comments 06/06/2019 12:41 PM 06/06/2019 5:47 PM Care Teams Tuber Operator Relationship Specialty Start Date End Date Ho Peña MD PCP - General Family Medicine 05/07/18 Enio Parish MD Referring Physician Gastroenterology 05/10/18
--- OUTSIDE RECORDS SUMMARY | 2024-12-20 05:40 | XMS_ITS | Clinical Summary ---
Author Organization [facility] Address [address] [place] [address] Care Team Providers Care Mobile Product Manager Name Role Phone Ho Peña MD Primary Care Provider [phone] Enio Parish MD Unavailable [phone] Allergies No known active allergies Medications [...] (07/24/2018): Added automatically from request for surgery [id number] Recent weight loss 05/10/2018 Muscle cramps 05/10/2018 [...] Ordaz MD - 05/30/2024 10:01 AM CDT [facility] Patient Name: Jairo Paz Procedure Date: 05/30/2024 10:01AM Date of : 1950 Admit Type: Outpatient Age: 74 Gender: Male Attending MD: Thierno Ordaz M.D. Room: [facility] ENDOSCOPY ROOM 02 Note Status: Finalized [...] The scope was passed under direct vision.The [id number] Endoscsope was introduced through the anus and [...] On: 05/30/2024 10:01 AM Recognized by the [place] [employer] for promoting quality in endoscopy Thierno Ordaz MD ENDOSCOPY PROCEDURES Final R esult from Last 3 Months or Most Recently Relevant to Health Maintenance Insurance [facility] MEDICARE MEDICARE [facility] MEDICARE ADVANTAGE [facility] MEDICARE [facility] MEDICARE Advance Directives For more information, please contact: [phone] * Full Code (Latest Code Status on File) Date Activated Date Inactivated Comments 05/30/2024 8:48 AM 05/30/2024 3:06 PM * Full Code Date Activated Date Inactivated Comments 12/18/2020 9:31 AM 12/18/2020 3:17 PM * Full Code Date Activated Date Inactivated Comments 06/06/2019 12:41 PM 06/06/2019 5:47 PM Care Teams Mobile Product Manager Relationship Specialty Start Date End Date Ho Peña MD PCP - General Family Medicine 05/07/18 Enio Parish MD Referring Physician Gastroenterology 05/10/18
[2024-12-20 05:49] LABS: Lactic Acid Reflex 2.2 mmol/L (0.7-2.0)
[2024-12-20 05:50] LABS: Alanine Aminotransferase 26 U/L (6-50); Albumin Level 5.1 g/dL (3.5-5.1); Alkaline Phosphatase 58 U/L (38-126); Anion Gap 14 mmol/L (4-12); Aspartate Amino Transferase 24 U/L (17-59); Bilirubin,Total 1.2 mg/dL (0.2-1.3); Blood Urea Nitrogen 28 mg/dL (9-20); Calcium 9.4 mg/dL (8.4-10.2); Carbon Dioxide 22 mmol/L (22-30); Chloride 104 mmol/L (98-107); Estimated CRCL calculation 41 ml/min; Estimated Glomerular Filt Rate 51; Glucose 129 mg/dL (65-110); Potassium 4.1 mmol/L (3.4-5.0); Sodium 140 mmol/L (137-145)
--- NOTE | 2024-12-20 06:36 | ED_ITS ---
HPI - Nausea/Vomiting/Diarrhea General Chief complaint: Nausea/Vomiting/Diarrhea Stated complaint: diarrhea Time Seen by Provider: 12/20/24 05:20 Source: patient and family Mode of arrival: ambulatory Limitations: no limitations History of Present Illness HPI Narrative: 74-year-old with is with diarrhea for last 4 days associated with abdominal cramping and occasional nausea. He denies any fever or chills. No recent antibiotic use. No other family member is sick. MD elicited complaint: nausea and diarrhea Onset (ago): day(s) (4) Associated nausea: Yes Associated abdominal pain: Yes Location of pain: diffuse Severity: moderate Quality: cramping Exacerbating factors: none Relieving factors: none Associated symptoms: denies other symptoms Related Data Home Medications ?Medication ?Instructions ?Recorded ?Confirmed ?Last Taken ?Type aspirin 81 mg capsule 81 mg PO DAILY 06/01/21 Unknown History lisinopril 10 mg tablet 10 mg PO DAILY 06/01/21 Unknown History metformin 850 mg tablet 850 mg PO BID 06/01/21 Unknown History rosuvastatin 10 mg tablet 10 mg PO DAILY 06/01/21 Unknown History Allergies Allergy/AdvReac Type Severity Reaction Status Date / Time No Known Allergies Allergy Mild Verified 12/20/24 05:11 Review of Systems 2 Review of Systems: All systems reviewed & are unremarkable except as noted in HPI and below Constitutional: Constitutional: Reports no additional constitutional complaints Eyes: Eyes: Reports no additional eye complaints ENT: Reports system reviewed and no additional complaints, except as documented Cardiovascular: Cardiovascular: Reports no additional cardiovascular complaints Respiratory: Respiratory: Reports no additional respiratory complaints Gastrointestinal: Gastrointestinal: Reports as per HPI Musculoskeletal: Musculoskeletal: Reports no additional musculoskeletal complaints Neurologic: Reports system reviewed and no additional complaints, except as documented PMF Past Medical History Medical History History of broken collarbone right collar bone broken 1969 Surgical History Surgical History History of left knee replacement 2009 Social History Social History Smoking status: Never smoker Alcohol intake: never Substance use: never Substance use type: does not use Exam 2 Narrative: GENERAL: Well-appearing, well-nourished, and in no acute distress. HEAD: Normocephalic, atraumatic. EYES: PERRLA and EOMI. ENT: Nares clear, no rhinorrhea or epistaxis. Mucous membranes moist. NECK: Supple. CHEST: Clear to auscultation. No respiratory distress. HEART: Regular rate and rhythm. No murmur heard. Normal peripheral pulses. ABDOMEN: Soft, nontender, nondistended, normal active bowel sounds. EXTREMITIES: Normal range of motion. No edema. SKIN: Warm, dry, no rash. NEURO: No focal deficits. Alert and oriented x3. PSYCH: Normal mood and affect. Course Course Emergency Course: Patient was given IV fluids. I did inform him and his about his lab work, CT findings. He does feel comfortable going. Advised him to drink plenty of fluids Vital Signs Vital signs: Vital Signs Temperature 36.6 C 12/20/24 05:30 Pulse Rate 90 12/20/24 05:30 Respiratory Rate 16 12/20/24 05:30 Blood Pressure 100/78 12/20/24 05:30 Pulse Oximetry 97 12/20/24 05:30 Oxygen Delivery Room Air 12/20/24 05:30 Temperature 36.6 C 12/20/24 05:30 Pulse Rate 90 12/20/24 05:30 Respiratory Rate 16 12/20/24 05:30 Blood Pressure 100/78 12/20/24 05:30 Pulse Oximetry 97 12/20/24 05:30 Oxygen Delivery Room Air 12/20/24 05:30 MDM - Nausea/Vomiting/Diarrhea Differential Diagnosis Differential diagnosis: Likely food poisoning, gastroenteritis and dehydration Medical Records Attestation: I reviewed the patient's medical records. Lab Data Attestation: I reviewed the patient's lab results. 12/20/24 05:25 12/20/24 05:25 Labs: Lab Results 12/20/24 12/20/24 Range/Units 05:19 05:25 WBC 10.7 H (4.5-10.0) K/mm3 RBC 5.18 (4.6-6.20) M/mm3 Hgb 15.6 (14.0-18.0) g/dL Hct 46.9 (42.0-52.0) % MCV 90.5 (80-100) fl MCH 30.1 (26-34) pg MCHC 33.3 (32-36) g/dl RDW 14.0 (11.5-14.5) % Plt Count 197 (150-375) k/mm3 MPV 10.7 H (7.4-10.4) fl Immature Gran % (Auto) 0.4 (0-0.5) % Neut % (Auto) 67.6 (45.5-73.1) % Lymph % (Auto) 20.4 (18.3-44.2) % [place] % (Auto) 6.9 (2.6-8.5) % Eos % (Auto) 4.3 (0-4.4) % Baso % (Auto) 0.4 (0.2-1.2) % Lymph # (Auto) 2.17 (0.9-3.2) K/mm3 [place] # (Auto) 0.7 H (0.1-0.6) K/mm3 Eos # (Auto) 0.5 H (0-0.3) K/mm3 Baso # (Auto) 0.0 (0.0-0.1) K/mm3 Abs Immat Gran (auto) 0.04 H (0.00-0.031) K/mm3 Absolute Neuts (auto) 7.2 H (1.3-6.7) K/mm3 Absolute Nucleated RBC 0.000 (0.0-0.012) K/mm3 Nucleated RBC % 0.0 (0.0-0.2) % Sodium 140 (137-145) mmol/L Potassium 4.1 (3.4-5.0) mmol/L Chloride 104 (98-107) mmol/L Carbon Dioxide 22 (22-30) mmol/L Anion Gap 14 H (4-12) mmol/L BUN 28 H (9-20) mg/dL Creatinine 1.37 H (0.7-1.3) mg/dL Estim Creat Clear Calc 41 ml/min Estimated GFR 51 L (59 - ) Glucose 129 H (65-110) mg/dL POC Capillary Glucose 118 H (65-105) mg/dl Lactic Acid 2.2 H (0.7-2.0) mmol/L Calcium 9.4 (8.4-10.2) mg/dL Total Bilirubin 1.2 (0.2-1.3) mg/dL AST 24 (17-59) U/L ALT 26 (6-50) U/L Alkaline Phosphatase 58 (38-126) U/L Total Protein 8.0 (6.3-8.2) g/dL Albumin 5.1 (3.5-5.1) g/dL Imaging Data Radiologist's impression: ITS Impressions Abdomen/Pelvis CT 12/20/24 06:09 Impression: No acute abnormalities seen. Diffuse hepatic steatosis. Discharge Plan Discharge Clinical Impression: Gastroenteritis Patient Disposition: Home Condition: Stable Instructions: Acute Diarrhea (ED) Patient Language: Korean Prescriptions: New ondansetron 4 mg tablet,disintegrating 4 mg PO Q6-8H PRN (Reason: nausea and vomiting) Qty: 14 0RF No Action metformin 850 mg tablet 850 mg PO BID lisinopril 10 mg tablet 10 mg PO DAILY rosuvastatin 10 mg tablet 10 mg PO DAILY aspirin 81 mg capsule 81 mg PO DAILY Follow-up/Referrals: Ho Peña MD [Primary Care Provider] - Time of Disposition: 06:41
[2024-12-20 07:31] LABS: Reflex Lactic Acid Yes or No Add Lactic
== END 2024-12-20 07:04 | disposition home or self-care (01) ==
PROVIDERS: Emergency Provider Family Medicine; PCP Emergency Medicine
DX: K52.9 Noninfective gastroenteritis and colitis, unspecified (principal); Z79.82 Long term (current) use of aspirin
CPT/HCPCS: 36415; 74177; 80053; 82948; 83605; 85025; 96361; 96374; 99284; J2405; J7030; Q9967

== ENCOUNTER 2025-07-17 13:07 | Emergency (ER) | payer MEDICARE, SELFPAY ==
--- NOTE | ~2025-07-17 | XR_ITS ---
XR knee RT min 4V 07/17/2025 13:42 Indication: Right knee pain Procedure: 4 views right knee Comparison: No prior studies for comparison. Findings: Moderate tricompartment osteoarthritis. No fracture, subluxation or dislocation. No significant joint effusion. No foreign bodies. Impression: 1: Moderate tricompartment osteoarthritis. Reviewed, dictated and finalized at location I. S ANALYST Impression: 1: Moderate tricompartment osteoarthritis.
--- NOTE | 2025-07-17 13:11 | ED.LOWEXIN ---
HPI - Extremity Injury (Lower) General Chief Complaint: Extremity Problem,Nontraumatic Stated Complaint: R KNEE SWELLING Time Seen by Provider: 07/17/25 13:20 Source: patient Mode of arrival: ambulatory Limitations: no limitations History of Present Illness HPI Narrative: Martin is a 75-year-old male patient presenting to the clinic today with complaints of right knee pain and swelling x3 weeks. He reports he has pain and swelling to the right medial/inferior knee. No known injury in the last 3 weeks however he does play tennis regularly. Has not been playing tennis for approximately 1 month. No history of gout or known arthritis his knee. Has been taking ibuprofen and icing it which has been helping. No pain at rest but has 6 at 10 with movement/ambulation. Related Data Home Medications ?Medication ?Instructions ?Recorded ?Confirmed ?Last Taken ?Type aspirin 81 mg capsule 81 mg PO DAILY 06/01/21 Unknown History metformin 850 mg tablet 850 mg PO BID 06/01/21 Unknown History rosuvastatin 10 mg tablet 10 mg PO DAILY 06/01/21 Unknown History lisinopril 20 mg tablet mg 07/17/25 Unknown History semaglutide 7 mg tablet (Rybelsus) mg PO 07/17/25 Unknown History Allergies Allergy/AdvReac Type Severity Reaction Status Date / Time No Known Allergies Allergy Mild Verified 07/17/25 13:19 Review of Systems Review of Systems: Pertinent positives per HPI. Patient denies any fever, chills, rash, headache, visual changes, dizziness, cough, runny nose, sore throat, shortness of breath, chest pain, palpitations, nausea, vomiting, diarrhea, constipation, abdominal pain, or any urinary issues. [facility] Past Medical History Medical History History of broken collarbone right collar bone broken 1970 Surgical History Surgical History History of left knee replacement 2009 Social History Social History Smoking status: Never smoker Alcohol intake: never Substance use: never Substance use type: does not use Comments At the time of my signature, I reviewed and agree with the nursing past medical, surgical, social, and family history. There is no relevant family history pertinent to the patient complaint. Exam Narrative: General: Well-developed, well nourished, in no apparent distress Head: Normocephalic, atraumatic. Cardio: Regular rate and rhythm, s1 and s2 normal, no murmur appreciated. Resp: Clear to auscultation bilaterally, no rhonchi, rales, wheezing or rubs. Musculoskeletal: No deformity, pain and swelling to the right medial and inferior knee joint-tender to palpation, grossly normal range of motion, muscle strength strong and equal, peripheral pulse strong, swelling noted to the right knee when compared to the left knee, no cyanosis, normal gait and station Course Course Level of Care: Express Care Visit Vital Signs Vital signs: Vital Signs Temperature 36.2 C L 07/17/25 13:16 Pulse Rate 87 07/17/25 13:16 Respiratory Rate 16 07/17/25 13:16 Blood Pressure 119/86 07/17/25 13:16 Pulse Oximetry 99 07/17/25 13:16 Temperature 36.2 C L 07/17/25 13:16 Pulse Rate 87 07/17/25 13:16 Respiratory Rate 16 07/17/25 13:16 Blood Pressure 119/86 07/17/25 13:16 Pulse Oximetry 99 07/17/25 13:16 MDM MDM Narrative Medical decision making narrative: At the time of visit patient is resting comfortably on the exam table. Patient appears to be nontoxic. Complaints of right knee pain and swelling x3 weeks. He reports he has pain and swelling to the right medial/inferior knee. No known injury in the last 3 weeks however he does play tennis regularly. Has not been playing tennis for approximately 1 month. No history of gout or known arthritis his knee. Has been taking ibuprofen and icing it which has been helping. No pain at rest but has 6 at 10 with movement/ambulation. On exam patient has right knee pain and swelling, tenderness to palpation over the right medial knee and right inferior knee joint, no pain with flexion extension however does have pain with ambulation, no crepitus palpable, x-ray of the right knee was ordered. Diagnostics: X-ray of the right knee was performed and shows moderate tricompartmental osteoarthritis. Plan: I suspect patient has right knee osteoarthritis/acute knee pain. Prescription for Medrol Dosepak was sent to pharmacy. Supportive measures were discussed with the patient and they voiced understanding discharge instructions and agrees to treatment plan. Return precautions reviewed Differential Diagnosis Differential Diagnosis: acute internal derangement of knee, fracture of femur, tibia fracture, tendon rupture, knee sprain, gout, osteoarthritis Imaging Data Radiologist's impression: ITS Impressions Knee X-Ray 07/17/25 13:43 Impression: 1: Moderate tricompartment osteoarthritis. Discharge Plan Discharge Clinical Impression: Localized osteoarthritis of right knee, Acute pain of right knee Patient Disposition: Home Condition: Stable Instructions: Antibiotic Form, Osteoarthritis (ED), Swollen Knee Joint (ED) Additional Instructions: X-ray right knee shows no sign of fracture or malalignment. Does show moderate tricompartmental osteoarthritis Rest, ice, elevate, and wear regina wrap as directed Tylenol/motrin for pain as discussed. Take Medrol Dosepak as prescribed Gradually bear weight No running or sports until healed. Follow up with your PCP if symptoms persist more than 1 week. Patient Language: [place] Prescriptions: New methylprednisolone [Medrol (Davin)] 4 mg tablets,dose pack See Rx Instructions PO .COMPLEX Qty: 21 0RF Rx Instructions: orally per package directions No Action lisinopril 20 mg tablet Rybelsus 7 mg tablet PO metformin 850 mg tablet 850 mg PO BID rosuvastatin 10 mg tablet 10 mg PO DAILY aspirin 81 mg capsule 81 mg PO DAILY ondansetron 4 mg tablet,disintegrating 4 mg PO Q6-8H PRN (Reason: nausea and vomiting) Qty: 14 0RF Follow-up/Referrals: Ho Peña MD [Primary Care Provider, [facility]] Time of Disposition: 13:59 Quality NIHSS Nursing Documentation ED NIHSS nursing documentation: reviewed/agree
[2025-07-17 13:16] VITALS: BP 119/86; PULSE 87; RESP 16; TEMP 36.2; O2SAT 99
== END 2025-07-17 14:07 | disposition home or self-care (01) ==
PROVIDERS: Emergency Provider Nurse Practitioner Family; PCP Emergency Medicine
DX: M17.11 Unilateral primary osteoarthritis, right knee (principal); M25.561 Pain in right knee; Z79.82 Long term (current) use of aspirin; Z96.652 Presence of left artificial knee joint
CPT/HCPCS: 73564; 99213; G0463